=== PATIENT | female | born 1970 | race Caucasian/White ===

== ENCOUNTER 2018-09-12 06:54 | Day surgery (SDC) | payer BC, OTHER ==
[2018-09-12] VITALS (7 sets, daily range): BP systolic 122–149; BP diastolic 58–87; O2SAT 95
[~2018-09-12] VITALS: Ht 162.6 cm; Wt 12.2 kg
[~2018-09-12 06:54] MED LIST: /CIPR75TA OR; ALLE10TA PO; ASPI81TA85 PO; FLAG500T OR; HYDR25TAB PO; birth control pill OR
[2018-09-12] MEDS ORDERED: PROPOFOL 200 MG/20 ML VIAL As Ordered ONE ×2 (06:56→09:26)
[2018-09-12] MEDS ORDERED: ROCURONIUM BROMIDE 50 MG/5 ML VIAL As Ordered ONE (06:57)
[2018-09-12] MEDS ORDERED: LR 1,000 ML IV ONE (07:00)
[2018-09-12 07:27] LABS: HEMATOCRIT 42.3 % (36.0-47.0); HEMOGLOBIN 13.7 g/dl (12.0-15.5); MEAN CORPUSCULAR HEMOGLOBIN 27.8 pg (27.0-33.0); MEAN CORPUSCULAR HGB CONC 32.4 g/dl (32.0-36.5); MEAN CORPUSCULAR VOLUME 85.8 fl (80.0-96.0); PLATELET COUNT, AUTOMATED 224 10^3/uL (150-450); RED BLOOD COUNT 4.93 10^6/uL (4.00-5.40)
[2018-09-12 07:30] LABS: URINE PREG TEST NEGATIVE (NEGATIVE)
[2018-09-12] MEDS ORDERED: dexameTHASONE 4 MG/ML 1ML VIAL (J1100) As Ordered ONE ×2 (07:48→09:26)
[2018-09-12] MEDS ORDERED: ONDANSETRON 4MG/2ML VIAL (J2405) As Ordered ONE (07:48)
[2018-09-12] MEDS ORDERED: LIDOCAINE 2% INJ 100 MG/5 ML SDV (FOR ANES.) As Ordered ONE (07:48)
[2018-09-12] MEDS ORDERED: fentaNYL 250 MCG/5 ML INJECTION (J3010) As Ordered ONE (07:50)
[2018-09-12] MEDS ORDERED: MIDAZOLAM INJ 2 MG/2 ML VIAL (J2250) As Ordered ONE (07:50)
[2018-09-12] MEDS ORDERED: ACETAMINOPHEN 1000MG 100ML IV BTL (OFIRMEV) (J0131 PER 10MG) As Ordered ONE (08:11)
[2018-09-12] MEDS ORDERED: KETOROLAC 60 MG/2 ML VIAL (J1885) As Ordered ONE (08:13)
[2018-09-12] MEDS ORDERED: PHENYLephrine HCL 500 MCG/5 ML (100MCG/ML) SYRINGE (J2370) As Ordered ONE (08:48)
[2018-09-12] MEDS ORDERED: hydroCHLOROthiazide 25 MG TAB PO SCH (09:00)
[2018-09-12] MEDS ORDERED: LORATADINE 10 MG TAB PO SCH (09:00)
[2018-09-12] MEDS ORDERED: FLUTICASONE PROP 0.05% NASAL SPRAY 16 GM (FLONASE) NARES SCH (09:00)
[2018-09-12] MEDS ORDERED: ASPIRIN 81 MG CHEW TABLET PO SCH (09:00)
[2018-09-12] MEDS ORDERED: HYDROmorphone HCL 2 MG/ML 1ML VIAL (J1170) As Ordered ONE (09:46)
[2018-09-12] MEDS ORDERED: SUGAMMADEX SODIUM 500 MG/5 ML VIAL (BRIDION) As Ordered ONE (09:53)
[2018-09-12] MEDS ORDERED: MORPHINE 1MG/ML IN 0.9% NACL 100ML IV BAG As Ordered ONE (11:19)
[2018-09-12] MEDS ORDERED: NALBUPHINE HCL 10 MG/ML AMP (J2300) IV PRN (11:30)
[2018-09-12] MEDS ORDERED: fentaNYL 100 MCG/2 ML INJECTION (J3010) IV PRN (11:30)
[2018-09-12] MEDS ORDERED: MORPHINE 1MG/ML IN 0.9% NACL 100ML IV BAG IV PRN (11:30)
[2018-09-12] MEDS ORDERED: NALOXONE INJ 0.4 MG/1 ML VIAL (J2310) IV PRN (11:30)
[2018-09-12] MEDS ORDERED: EPIDURAL/PCA KEYS XX PRN (11:30)
[2018-09-12] MEDS ORDERED: PERCOCET 5MG/325MG TAB PO PRN (11:30)
[2018-09-12] MEDS ORDERED: LR 1,000 ML IV SCH ×2 (11:30)
[2018-09-12] MEDS ORDERED: diphenhydrAMINE INJ 50MG/ML VIAL (J1200) IV PRN (11:30)
[2018-09-12] MEDS ORDERED: METOCLOPRAMIDE INJ 10MG/2ML VIAL (J2765) IV PRN (11:30)
[2018-09-12] MEDS ORDERED: IBUPROFEN 600 MG TAB PO PRN ×2 (11:30→14:00)
[2018-09-12] MEDS ORDERED: ONDANSETRON 4MG/2ML VIAL (J2405) IV PRN (11:30)
[2018-09-12] MEDS ORDERED: HYDROMORPHONE HCL 0.5 MG/ 0.5 ML SYRINGE (J1170 PER 1) IV PRN (11:30)
--- NOTE | 2018-09-12 11:53 | RO ---
DATE OF PROCEDURE: 09/12/2018 PREOPERATIVE DIAGNOSIS/INDICATION FOR SURGERY: Pain and bleeding. POSTOPERATIVE DIAGNOSIS: Pain and bleeding with some small fibroids noted and a suspicion of adenomyosis but of course we cannot make that diagnosis. PROCEDURE: Laparoscopic assisted vaginal hysterectomy (LAVH), salpingectomy bilaterally. She did have a right paratubal cyst that came out with the tube and benign functional cyst on the right ovary, which was left in place, I think it is just going to ovulate shortly. SURGEON: Dr. Hannah Escobar ANALOG CIRCUIT DESIGNER: Zenaida Jiménez NP ANESTHESIA: General endotracheal anesthesia. BRIEF DESCRIPTION OF PROCEDURE AND FINDINGS: Anna was brought to the operating room where sufficient general endotracheal anesthesia was induced. She was prepped, draped and positioned in the usual sterile fashion. The uterine manipulator placed and the uterus had been sounded to 12 and the Franks with the ability to backfill was placed as well. Attention was then turned to the abdomen where a semi-lunar incision was made below the umbilicus. The patient had a previous herniorrhaphy, but she had a small hernia below the umbilicus, which was instantly noted and of course repaired, but this was inferiorly. We could see the green, I think Maxon or some other green suture from the previous repair, but there was a small hernia below it that we used to the laparoscope and then closed at the end of the case. The Witt cannula was placed in open laparoscopic technique and CO2 insufflation then begun. Again, we encountered the hernia so we did not have to make the same incisions as typical but we did grasp the edge of the fascia and place the #0 Vicryl retention sutures so that we could close that on the way out. After adequate CO2 insufflation, the peritoneal cavity was visualized. There were normal shiny peritoneal surfaces throughout. There was no ascites, exudate nor excrescences. There were some minor adhesions from a previous surgery not marked. She had two normal ovaries, had a right paratubal cyst, a functional cyst on the right ovary which is normal appearance and some small fibroids projecting off the enlarged uterus, which also had a boggy soft texture consistent with adenomyosis, but of course diagnosis at this point. We did place the 2.3 mm clutch grasper suprapubically and used the #45 Enseal through the operative port at the scope to elevate and then cauterize and dissect through the mesentery of the tubes bilaterally and then through the utero-ovarian suspensory ligaments bilaterally and then through the round ligaments bilaterally. We then went down and cauterized some of the uterus vasculature without cutting it and transected the bladder flap anteriorly just with the cold scissors, without cautery and then dissected the posterior wall of the broad ligament posteriorly to free the ureters as well. Then, having done the work up top we went ahead and went below. The uterine manipulator was removed and single-tooth tenacula were used to grasp the anterior and posterior aspect of the cervix with sharp dissection around the base of the cervix to isolate the cardinal ligaments which were clamped, transected and ligated using the D'Linder clamps. The uterosacrals were then clamped, transected and ligated and marked for later reconnection to the cuff. The peritoneal reflection posteriorly was entered and the Kelvin placed. The patient has a fairly long vagina and this did mean that all the longest instruments were needed for this case. We dissected the anteriorly to deflect the bladder away and then carefully worked our way through the uterine vasculature in progressive steps using D'Linder clamps, the SuperCut scissors and #0 Vicryl suture until the uterus had been freed from its attachments and could then be delivered through the vagina. At which point, we did have on the patient's left side some bleeding at the cuff itself. We were able to oversew this with #0 Vicryl and paused to watch that. I do believe one of the inferior aspects of the uterines had been bleeding but we were able to get that under control. We were then able to complete the bilateral angle stitches and reattach the uterosacrals and then close the cuff in a running locked stitch of #0 Vicryl with good approximation and hemostasis achieved at each layer. After closure of the cuff, the procedure was ended with the instruments removed of course from the umbilicus and not the fascial wound but the hernia closed and then the skin closed with #0 Vicryl in a subcuticular stitch at the umbilicus. At the clutch grasper site, we used the Dermabond glue and a Band-Aid was placed with dry sterile dressings applied. The procedure was ended. Estimated blood loss for the procedure about 550 mL. Fluid replacement was crystalloid. Complications: None. Condition and Disposition: Anna tolerated the procedure well and was recovering in the recovery room in good condition.
[2018-09-13] VITALS: BP 121/57
[2018-09-13 04:00] VITALS: BP 118/53
[2018-09-13] MEDS ORDERED: NORCO, ANEXSIA 5/325MG TABLET (HYDROcodone/ACETAMINOPHEN) PO PRN (06:00)
[2018-09-13 06:40] LABS: HEMATOCRIT 36.7 % (36.0-47.0); HEMOGLOBIN 11.8 g/dl (12.0-15.5); MEAN CORPUSCULAR HEMOGLOBIN 27.9 pg (27.0-33.0); MEAN CORPUSCULAR HGB CONC 32.2 g/dl (32.0-36.5); MEAN CORPUSCULAR VOLUME 86.8 fl (80.0-96.0); PLATELET COUNT, AUTOMATED 233 10^3/uL (150-450); RED BLOOD COUNT 4.23 10^6/uL (4.00-5.40); WHITE BLOOD COUNT 18.5 10^3/uL (4.0-10.0)
[2018-09-13 08:00] VITALS: BP 135/76
== END 2018-09-13 09:40 | disposition home or self-care (01) ==
LOC: M SDC 06:54 → M PED 12:26 → M SDC 09-13 09:40
PROVIDERS: ATTEND Obstetrics & Gynecology
DX: N94.6 Dysmenorrhea, unspecified (principal); N80.0 Endometriosis of uterus; I10 Essential (primary) hypertension; K21.9 Gastro-esophageal reflux disease without esophagitis; Z79.82 Long term (current) use of aspirin; G47.30 Sleep apnea, unspecified
CPT/HCPCS: 36415; 58571; 84703; 85027; 86850; 86900; 86901; 88307; 96360; 96361; J0131; J0690; J1100; J1170; J1885; J2250; J2370; J2405; J3010